=== PATIENT | female | born 1990 | race Two or more races ===

== ENCOUNTER → 2017-10-23 16:53 | Outpatient (CLI) | payer OTHER ==
[~2017-10-23 16:53] MED LIST: ABILIFY2 MG; CELEBREX100 MG PO; PROZAC20 MG; SKELAXIN800 MG PO
== END | disposition home or self-care (01) ==
LOC: RAD 16:53
DX: M54.5 Low back pain (principal)

== ENCOUNTER 2017-12-31 16:57 | Outpatient (CLI) | payer OTHER | END 2017-12-31 17:07 | disposition home or self-care (01) | LOC: RAD 16:57 | DX: M54.5 Low back pain (principal) ==